=== PATIENT | female | born 1990 | race Caucasian/White ===

== ENCOUNTER → 2017-11-24 16:40 | Outpatient (CLI) | payer OTHER, SELFPAY ==
[2017-11-24 16:57] LABS: Basophils % 0.1 % (0.1-2.0); Eosinophils # 0.1 K/mm3 (0.0-0.4); Hematocrit 37.7 % (37.0-47.0); Hemoglobin 12.8 g/dL (12.2-16.2); Lymphocytes # 1.9 K/mm3 (0.7-4.5); Lymphocytes % 27.9 K/mm3 (10-50); Mean Corpuscular HGB Conc 33.9 g/dL (31.8-35.4); Mean Corpuscular Hemoglobin 27.4 pg (27.0-31.2); Mean Corpuscular Volume 80.8 fl (81-99); Mean Platelet Volume 7.2 fl (7.4-10.4); Monocytes # 0.3 K/mm3 (0.1-1.0); Neutrophils # 4.4 K/mm3 (1.8-7.8); Platelet Count 221 K/mm3 (142-424); Red Blood Count 4.67 M/mm3 (4.20-5.40); Red Cell Distribution Width 14.1 % (11.5-17.5); White Blood Count 6.7 K/mm3 (4.8-10.8)
[2017-11-26 08:28] LABS: HIV Screen 4th Generation wRfx Non Reactive (Non Reactive)
[2017-11-26 15:22] LABS: Hepatitis B Surface Antigen Negative (Negative); Hepatitis C Antibody 0.1 s/co ratio (0.0-0.9); Rapid Plasma Reagin Ab Titer Non Reactive (NonRea<1:1); Rubella Antibodies, IgG 1.81 index (Immune >0.99)
== END ==
PROVIDERS: Family Provider Physician Assistant; PCP Nurse Practitioner Family; Visit Provider Nurse Practitioner Obstetrics & Gynecology
DX: Z34.90 Encounter for supervision of normal pregnancy, unspecified, unspecified trimester (principal)
CPT/HCPCS: 36415; 85025; 86592; 86703; 86762; 86850; 87340; 87380; G0432

== ENCOUNTER → 2018-02-09 12:45 | Outpatient (CLI) | payer OTHER, SELFPAY ==
--- NOTE | 2018-02-09 12:47 | US_ITS ---
US OB /maternal detail: INDICATION: ITS.REASON: US OB Complete ORDERING PHYSICIAN: Zack Amezquita MD PATIENT AGE: 27 years TECHNIQUE: ultrasound transabdominal scanning. COMPARISON: No previous relevant studies. FINDINGS: Single viable intrauterine gestation. Breech position. Placenta: Anterior placenta grade 1. There is average amount fluid. The cervix appears satisfactory. Closed and measuring 4 cm in length. Complete survey performed and was unremarkable on the submitted images as in PACS. No discrete anomalies identified on survey imaging by technologist. Active fetus. Three-vessel cord with satisfactory umbilical cord insertion. 4- chamber heart noted. Survey of brain & ventricles unremarkable. Face and neck survey unremarkable. Diaphragm and chest views unremarkable. Abdomen: Both kidneys noted and unremarkable. Stomach noted and satisfactory. Spine: Survey of the spine satisfactory with no anomalies identified nor imaged. Both arms and legs noted. Amniotic Fluid: Adequate. Maternal adnexa: No significant findings. Measurements: Average ultrasound age 20w6d. Gestational Age 21w0d. Estimated due date by ultrasound age 0306-23-2018. Estimated weight 371 grams. BPD = 21w1d OFD = 21w1d HC = 20w3d AC = 21w1d FL = 20w2d Growth Percentile= 29% Heart Rate = 140 bpm Cerebellum = 20w5d Humerus = 21w6d HC/AC is 1.12 (1.06-1.25). CI is 79% (70-86%). FL/BPD is 66%. FL/AC is 21% (20-24%). IMPRESSION: Single live fetus which is in breech presentation with an average ultrasound age of 20 weeks 6 days. heart and body motion noted. No obvious anomalies. All parameters correlate. Please see above for detail
== END ==
PROVIDERS: PCP Nurse Practitioner Family; Visit Provider Nurse Practitioner Obstetrics & Gynecology
DX: Z36.0 Encounter for antenatal screening for chromosomal anomalies (principal)
CPT/HCPCS: 76805; 76811

== ENCOUNTER → 2018-03-22 10:17 | Outpatient (CLI) | payer OTHER, SELFPAY ==
[2018-03-22 11:00] LABS: Glucose,Fasting 88 mg/dL (60-105)
[2018-03-22 12:55] LABS: Glucose 1 Hour 154 mg/dL (74-106)
== END ==
PROVIDERS: Visit Provider Nurse Practitioner Obstetrics & Gynecology
DX: Z34.90 Encounter for supervision of normal pregnancy, unspecified, unspecified trimester (principal)
CPT/HCPCS: 36415; 82951

== ENCOUNTER → 2018-03-25 08:42 | Outpatient (CLI) | payer OTHER, SELFPAY ==
[2018-03-25 09:15] LABS: Glucose,Fasting 90 mg/dL (60-105)
[2018-03-25 11:12] LABS: Glucose 1 Hour 165 mg/dL (74-106)
[2018-03-25 12:43] LABS: Glucose 2 Hour 119 mg/dL (74-106)
[2018-03-25 13:50] LABS: Glucose 3 Hour 90 mg/dL (74-106)
== END ==
PROVIDERS: Visit Provider Nurse Practitioner Obstetrics & Gynecology
DX: Z34.90 Encounter for supervision of normal pregnancy, unspecified, unspecified trimester (principal)
CPT/HCPCS: 36415; 82951

== ENCOUNTER → 2018-05-19 13:58 | Outpatient (CLI) | payer OTHER, SELFPAY | PROVIDERS: Visit Provider Nurse Practitioner Obstetrics & Gynecology | DX: Z34.90 Encounter for supervision of normal pregnancy, unspecified, unspecified trimester (principal); Z3A.35 35 weeks gestation of pregnancy | CPT/HCPCS: 86403 ==

== ENCOUNTER 2018-06-17 05:26 | Inpatient (IN) ==
[2018-06-17 06:11] LABS: Basophils % 0.1 % (0.1-2.0); Eosinophils # 0.1 K/mm3 (0.0-0.4); Eosinophils % 1.6 % (0.1-12.0); Hematocrit 35.1 % (37.0-47.0); Hemoglobin 10.9 g/dL (12.2-16.2); Lymphocytes # 1.9 K/mm3 (0.7-4.5); Lymphocytes % 31.3 % (10-50); Mean Corpuscular Hemoglobin 23.2 pg (27.0-31.2); Mean Corpuscular Volume 74.8 fl (81-99); Mean Platelet Volume 8.3 fl (7.4-10.4); Monocytes # 0.5 K/mm3 (0.1-1.0); Monocytes % 7.8 % (1.7-9.3); Neutrophils # 3.5 K/mm3 (1.8-7.8); Neutrophils % 59.1 % (37.0-80.0); Platelet Count 244 K/mm3 (142-424); Red Blood Count 4.69 M/mm3 (4.20-5.40); Red Cell Distribution Width 15.7 % (11.5-17.5)
[2018-06-17 06:16] LABS: Anion Gap 16.9 mEq/L (5-15); Calcium 9.4 mg/dL (8.5-10.1); Potassium 3.9 mmoL/L (3.5-5.1)
[2018-06-17 06:36] LABS: Microscopic, Urine URINE MICROSCOPIC (MICROSCOPIC)
[2018-06-17 06:39] LABS: Appearance,Urine CLEAR (Clear); Bilirubin,Urine Negative (Negative); Blood, Urine TRACE-L (Negative); Color,Urine YELLOW (Yellow); Glucose,Urine (UA) Negative (Negative); Ketones,Urine TRACE (Negative); Leukocyte Esterase,Urine Negative (Negative); PH,Urine 6.5 (5.0-8.5); Protein,Urine Negative (Negative); Urobilinogen,Urine 0.2 EU/dl (0.2)
[2018-06-17 06:54] LABS: Bacteria,Urine Trace /lpf; Mucus,Urine 1+ /lpf; RBC,Urine Occasional #/hpf (0-3)
--- NOTE | 2018-06-17 08:24 | Progress Note ---
[facility] Anesthesia Checklist - Patient Identification Patient Identification: Arm Band - Structural Data Admitted From: Inpatient Planned Operative Procedure/s: repeat c/s Consent for Planned Operative Procedure(s) Verified: Yes Verified Documents: Surgical Consent, History and Physical - NPO Status Verified Time NPO: 00:00 - Additional verifications Anesthesia Reactions: No - Airway Assessment C-Spine Mobility Assessed: Yes (mp2) TMJ Mobility Assessed: Yes Dentition: Good Dentition - Neurological Assessment Level of Consciousness: Awake, Alert - Anesthesia Plan Anesthesia Risk discussed: Yes Anesthesia Plan: Verified ASA Class: II Anesthesia Type: Spinal [facility] History I have reviewed the patient's past medical history: Yes Medical History: Reports:: Gastroesophageal Reflux Disease(GERD) Denies:: Diabetes Mellitus Type 1, Diabetes Mellitus Type 2 *Have you ever received a pneumonia vaccine?: No *Have you received a flu vaccine this season?: Yes (feb 2018) Other Surgeries: Yes: Amputation: No Fractures: No - *Social History Smoking Status: Never smoker Alcohol Intake: never Substance Use Type: denies use *Occupational Status:: other, employed Family Hx:: No significant family history Para: 2
--- NOTE | 2018-06-17 08:25 | Progress Note ---
[facility] Anesthesia Record Part II Discharge Time: 09:50 Destination: Obstetric PACU nurse assessment reviewed?: Yes Patient Condition:: Good Anesthesia Complications:: None Swallowing reflex intact?: Yes Cyanosis?: No
--- NOTE | 2018-06-17 08:25 | Progress Note ---
[facility] Anesthesia Record Part I Intake, IV Amount: 2,000 Estimated blood loss (mL): 850 Urine output (mL): 150 Blood Pressure: 121/80 SaO2: 98 Pulse Rate: 91 Respiratory Rate: 16 Temperature: 97.6 F Patient is:: Drowsy, Stable Stable to PACU at:: 08:20
--- NOTE | 2018-06-17 09:23 | Operative Note ---
Date of procedure: 06/17/18 Pre-op Diagnosis:: Term , previous section Post-op Diagnosis:: Term , previous section Procedure performed:: Repeat lower segment transverse section Surgeon:: Zack Amezquita MD Structural Steel Detailer(s):: Kelsey Redman BOAT ASSEMBLER:: Diaz Austin Anesthesia: spinal Estimated blood loss (mL): 850 Clinical Note:: She is a 28-year-old 5 para 3 now aborta 2 who was 39+ weeks gestational age. She has had 2 previous sections and as a result of that was of fered repeat lower segment transverse section at term. The risks and benefits of surgery were discussed with the patient prior to surgery. Operative findings:: She delivered a liveborn male child at 7:47 AM on the morning of June 17, 2018. The baby had Apgars of 9 at 1 minute and 10 at 5 minutes. He weighed 8 pounds 15 ounces. PH was 7.32. Ovaries and tubes appeared normal. Operative note:: She was taken to the operating room where spinal anesthesia was found be adequate. She was prepped and draped in normal sterile fashion in the supine position with a leftward tilt. A Goode catheter was in the bladder. A Pfannenstiel skin incision was made with knife then carried through to the underlying layer of fascia with cautery. The fascia was opened in the midline with cautery and extended laterally using Castellanos scissors. Melvi clamps were applied to the superior aspect of the fascial incision which was tented up and the underlying rectus muscles dissected off using cautery. The Melvi clamps were then applied to the inferior aspect of the fascial incision which in a similar fashion was tented up and the underlying rectus muscles dissected off using cautery. The rectus muscles were then in the midline, the peritoneum identified, and entered sharply with Metzenbaum scissors. This incision was then extended superiorly and inferiorly with cautery. We had good visualization of the bladder inferiorly. The Rolo device was then placed within the abdominal cavity. The bladder peritoneum was then opened in the midline and extended laterally using Metzenbaum scissors. A bladder flap was created digitally. Transverse incision was made through the uterine muscle to the amnion. This incision was then extended laterally using fingers traction. The amnion was entered sharply with knife. There was clear amniotic fluid. The 's head was then delivered atraumatically. A loose nuchal cord was then reduced. This was followed by the anterior shoulder and the rest of the 's body atraumatically. The oropharynx and nasopharynx were bulb suctioned. The infant was then handed off to Dr. Buckley who assigned Apgars of 9 at 1 minute and 10 at 5 minutes. We then obtained cord blood as well as cord pH. The pH was 7.32. Using gentle traction on the cord and countertraction on the fundus I was able to easily deliver the placenta intact. It had a normal three-vessel cord. The uterus was then cleared of clots and debris . The uterine incision was then closed using running 0 Vicryl suture in a locked fashion. A second layer of the same suture was used to imbricate the first layer. The bladder peritoneum was then closed using running 2-0 Vicryl suture in a locked fashion. The gutters and cul-de-sac were then cleared of clots and debris . Once again hemostasis was assured. The peritoneum was grasped with Goldie clamps and closed using running 2-0 Vicryl suture. The rectus muscles were then reapproximated using running 0 Vicryl suture. The fascia was closed using running #1 Vicryl suture. The subcutaneous tissues were then irrigated with warm water followed by closure Marisa's fascia using running 2-0 Monocryl suture. The skin was closed with kojo. I then cleaned the skin with Hibiclens. Sterile dressings were applied. She tolerated the procedure well and was taken to the recovery room in excellent condition. All sponges minute and needle counts were correct. Estimate a blood loss was approximately 850 mL. Condition: stable Disposition: PACU Specimens:: Products of conception Complications:: None
--- NOTE | 2018-06-17 09:43 | Pharmacy Consult Notes ---
[facility] Pharmacy VTE Monitoring - Patient Demographics Admission date: 06/17/18 Report Date: 06/17/18 Time: 09:42 Allergies/Adverse Reactions: Patient Allergies Sulfa (Sulfonamide Antibiotics) Allergy (Severe, Verified 06/17/18 08:30) Hives Height: 1.6 m Weight: 107.501 kg - VTE Risk Labs: VTE Related Lab Results Hgb 10.9 g/dL (12.2-16.2) L 06/17/18 06:00 Hct 35.1 % (37.0-47.0) L 06/17/18 06:00 Plt Count 244 K/mm3 (142-424) 06/17/18 06:00 BUN 9 mg/dL (7-18) 06/17/18 06:00 Creatinine 0.63 mg/dL (0.55-1.02) 06/17/18 06:00 Estimated Creat Clear 112 mL/min (50-200) 06/17/18 06:00 - Prophylaxis Types of VTE Prophylaxis: IPCS Thigh High Location of Applied Device: Bilateral Lower Extremeties (SCUDS ORDERED)
[2018-06-17 16:13] LABS: Hematocrit 26.3 % (37.0-47.0)
[2018-06-17 16:14] LABS: Hemoglobin 8.5 g/dL (12.2-16.2)
[2018-06-18 06:55] LABS: Basophils % 0.1 % (0.1-2.0); Eosinophils # 0.1 K/mm3 (0.0-0.4); Eosinophils % 0.9 % (0.1-12.0); Lymphocytes # 2.1 K/mm3 (0.7-4.5); Lymphocytes % 29.4 % (10-50); Mean Corpuscular HGB Conc 31.6 g/dL (31.8-35.4); Mean Corpuscular Hemoglobin 23.2 pg (27.0-31.2); Mean Corpuscular Volume 73.6 fl (81-99); Mean Platelet Volume 8.5 fl (7.4-10.4); Monocytes # 0.5 K/mm3 (0.1-1.0); Monocytes % 6.6 % (1.7-9.3); Neutrophils # 4.4 K/mm3 (1.8-7.8); Neutrophils % 63.1 % (37.0-80.0); Platelet Count 198 K/mm3 (142-424); Red Blood Count 3.07 M/mm3 (4.20-5.40); Red Cell Distribution Width 15.8 % (11.5-17.5)
[2018-06-18 06:58] LABS: Hemoglobin 7.1 g/dL (12.2-16.2)
[2018-06-18 06:59] LABS: Hematocrit 22.6 % (37.0-47.0)
--- NOTE | 2018-06-18 09:20 | Progress Note ---
Internal Medicine - PN: Subj *Date: 06/18/18 *Time: 09:18 Interval history: She is doing very well. She feels a little weak. Her hemoglobin is only 7.1 this morning. She started out at just 10.9. We will go ahead and transfuse her 2 units this morning. Exam Vital signs and Labs for Last 24 Hours: Temp Pulse Resp BP Pulse Ox 97.8 F 80 18 125/69 99 06/17/18 19:58 06/17/18 19:58 06/17/18 19:58 06/17/18 19:58 06/17/18 19:58 Laboratory Results - last 24 hr 06/17/18 06:00: Blood Type O Positive, Antibody Screen Negative, Crossmatch (AHG) See Detail 06/17/18 16:00: Hgb 8.5 L D, Hct 26.3 L 06/18/18 06:20: WBC 7.0, RBC 3.07 L D, Hgb 7.1 L*, Hct 22.6 L*, MCV 73.6 L, MCH 23.2 L, MCHC 31.6 L, RDW 15.8, Plt Count 198, MPV 8.5, Neut % (Auto) 63.1, Lymph % (Auto) 29.4, [place] % (Auto) 6.6, Eos % (Auto) 0.9, Baso % (Auto) 0.1, Neut # (Auto) 4.4, Lymph # (Auto) 2.1, [place] # (Auto) 0.5, Eos # (Auto) 0.1, Baso # (Auto) 0.0 I & O for Last 24 hours: Intake & Output 06/15/18 06/16/18 06/17/18 06/18/18 11:59 11:59 11:59 11:59 Intake Total 2260 / 2260 Output Total 95 / 95 Balance 2165 / 2165 Weight 237 lb - Constitutional no acute distress Assessment and Plan (1) Previous section Current visit: Yes Status: Acute Category: Surgical Code(s): Z98.891 - History of uterine scar from previous surgery (2) delivery delivered Current visit: Yes Status: Acute Category: Medical Code(s): O82 - Encounter for delivery without indication (3) Anemia affecting , antepartum Current visit: Yes Status: Acute Category: Medical Code(s): O99.019 - Anemia complicating , unspecified trimester - Assessment and plan all Dx Assessment and Plan for all problems:: She is anemic this morning with some symptoms of fatigue. We will go ahead and transfuse her 2 units of blood. We will plan to send her home in 48 hours.
[2018-06-18 16:44] LABS: Hemoglobin 9.7 g/dL (12.2-16.2)
[2018-06-19 01:17] VITALS: BP 115/86
--- NOTE | 2018-06-19 14:10 | Discharge Summary ---
General - General Admission date:: 06/17/18 Discharge date: 06/19/18 HPI HPI: Elective repeat CS Postop course complicated by anemia with transfusion 2 units PRBCs Postop Hgb 9.7 and asymptomatic with anemia Tolerating regular diet, ambulating and voiding without difficulty Patient is requesting discharge today (POD #2) Hospital Course Hospital Course: as documented in HPI Rhogam Administration: Not Indicated Objective Vital signs: Temp Pulse Resp BP Pulse Ox 98.8 F 104 H 18 115/86 99 06/18/18 20:53 06/18/18 20:53 06/18/18 20:53 06/18/18 20:53 06/18/18 20:53 Narrative: CONSTITUTIONAL: no acute distress HEENT: mucous membranes moist PULMONARY: breathing unlabored without audible wheezes CV: no tachycardia or visible JVD; normal LE peripheral pulses ABD: soft, NT/ND, no guarding : fundus firm at/below umbilicus SKIN: incision well approximated with no drainage, erythema or induration EXT: 1+ edema LEs NEURO: alert/oriented, no altered mental status PSYCH: appropriate mood and demeanor without visible anxiety/depression Results Labs on day of discharge: Labs from last 24 hours 06/18/18 06/18/18 06/17/18 16:25 15:40 06:00 Hgb 9.7 L D Hct 30.0 L Stl Aeromonas (PCR) Not detected Stl C. cayetanensis PCR Not detected Stool Rotavirus (PCR) Not detected Stl Adenov F 40/41 PCR Not detected Stool Astrovirus (PCR) Not detected Stool Campylobacter PCR Not detected Stl C.difficile Tox PCR Not detected Stool Cryptosporidium PCR Not detected Stl E.coli Shiga Tox PCR Not detected Stool E coli O157 PCR Not detected Stl Enterotoxigenic E PCR Not detected Stool EPEC (PCR) Not detected Stool EAEC (PCR) Not detected Stl E. histolytica PCR Not detected Stool Giardia Lamblia PCR Not detected Stool Salmonella PCR Not detected Stool Sapovirus (PCR) Not detected Stl P. shigelloides PCR Not detected Stl Shigella/EIEC PCR Not detected St Y.enterocolitica PCR Not detected Stool Vibrio (PCR) Not detected Stl Vibrio cholerae PCR Not detected Stl Norovirus GI/GII PCR Not detected Crossmatch (AHG) See Detail DS: Diagnosis - Discharge Diagnosis (1) Previous section Status: Acute (2) delivery delivered Status: Acute (3) Anemia affecting , antepartum Status: Acute Discharge Plan - Patient Discharge Instructions ACTIVITY: Limited activity DIET: regular diet Additional Instructions: No heavy lifting, no strenuous activity, nothing in the vagina for 6 weeks. Patient Instructions: Depression, Hemorrhage, Surgical Site Infection, DI for Postoperative Pain, [facility] Post Discharge Instructions - Follow up Plan Follow up with: Zack Amezquita MD [Staff Physician] - 06/30/18 11:00 am Disposition: Home, Self-Chcf Medications: Home Medications Medication Instructions Recorded Confirmed Type hydroxyzine HCl 25 mg tablet 25 mg PO QID PRN #60 tab 05/06/18 06/17/18 Rx Vit Calc,Iron,Folic [Kpn] 1 tab PO DAILY 06/17/18 06/17/18 History raNITIdine HCl [Ranitidine HCl] 150 mg PO BID 06/17/18 06/17/18 History Ketorolac Tromethamine [Toradol 10 mg PO Q6H PRN #30 tab 06/19/18 Rx 10mg tablet] Oxycodone HCl [OxyIR 5mg tablet] 10 mg PO Q6HP PRN #30 tab 06/19/18 Rx Prescriptions/Medication Reconciliation: New Oxycodone HCl [OxyIR 5mg tablet] 10 mg PO Q6HP PRN #30 tab PRN Reason: Moderate To Severe Pain Ketorolac Tromethamine [Toradol 10mg tablet] 10 mg PO Q6H PRN #30 tab PRN Reason: Moderate To Severe Pain Continue hydroxyzine HCl 25 mg tablet 25 mg PO QID PRN #60 tab PRN Reason: anxiety Vit Calc,Iron,Folic [Kpn] 1 tab PO DAILY raNITIdine HCl [Ranitidine HCl] 150 mg PO BID
== END 2018-06-19 15:00 | disposition home or self-care (01) | DRG 788 ==
LOC: OB 05:26
PROVIDERS: ADMIT Nurse Practitioner Obstetrics & Gynecology; ATTEND Nurse Practitioner Obstetrics & Gynecology
CPT/HCPCS: 36415; 59025; 80048; 81001; 82800; 85014; 85018; 85025; 86850; 87507; J2405; P9016

== ENCOUNTER → 2018-10-26 15:09 | Outpatient (CLI) | payer OTHER, SELFPAY ==
--- NOTE | 2018-10-26 15:11 | US_ITS ---
US transvaginal HISTORY: Pelvic pain, abnormal uterine bleeding ITS.REASON: US T/V- Lower Abdominal Pain ORDERING PHYSICIAN: Zack Amezquita MD PATIENT AGE: 28 years Comparison: 11/19/2017 FINDINGS: The uterus is 10 x 5 x 6 cm with a combined endometrial thickness of 15 mm. The right ovary is 3.5 x 2.6 cm containing small cysts the largest at 17 mm. The left ovary is 2.9 x 2.3 cm and also contains small follicles. No cul-de-sac fluid apparent. IMPRESSION: Bulky uterus with thickened endometrium
== END ==
PROVIDERS: PCP Nurse Practitioner Family; Visit Provider Nurse Practitioner Obstetrics & Gynecology
DX: R10.30 Lower abdominal pain, unspecified (principal)
CPT/HCPCS: 76830

== ENCOUNTER → 2019-02-08 12:16 | Outpatient (CLI) | payer OTHER, SELFPAY ==
[2019-02-08 19:13] LABS: Free Thyroxine Index 2.5 ug/dL (5.93-13.13); T4 (Thyroxine) 7.7 ug/dl (4.7-13.3); Thyroid Stimulating Hormone 1.44 uIU/ml (0.358-3.740); Triiodothryronine (T3) Uptake 33 % (31-39)
== END ==
PROVIDERS: Visit Provider Nurse Practitioner Obstetrics & Gynecology
DX: F32.1 Major depressive disorder, single episode, moderate (principal); F41.1 Generalized anxiety disorder
CPT/HCPCS: 36415; 84436; 84443; 84479

== ENCOUNTER → 2019-03-14 11:19 | Outpatient (CLI) | payer OTHER, SELFPAY ==
--- NOTE | 2019-03-14 11:24 | US_ITS ---
PROCEDURE: US GALLBLADDER CLINICAL INDICATION: US Gallbladder- RUQP Right upper quadrant pain COMPARISON: No exams were available for comparison FINDINGS: Pancreas: Unremarkable/Not well seen Liver: Unremarkable. There is appropriate direction of blood flow within a non dilated portal vein. Right kidney: Unremarkable appearing. No hydronephrosis. Gallbladder: No stones are evident. There is no gallbladder wall thickening. Common duct is normal in diameter. IMPRESSION: Negative gallbladder ultrasound. No stones evident. Dictated by: Jong Zuñiga MD 03/14/2019 20:06 Electronically signed by Jong Zuñiga MD in [place] 03/14/2019 20:06
== END ==
PROVIDERS: PCP Nurse Practitioner Family; Visit Provider Nurse Practitioner Obstetrics & Gynecology
DX: R10.11 Right upper quadrant pain (principal)
CPT/HCPCS: 76705

== ENCOUNTER → 2022-06-09 14:37 | Outpatient (CLI) | payer OTHER, SELFPAY ==
[2022-06-09 17:49] LABS: HCG,Quantitative < 2 mIU/ml (0-5.42)
[2022-06-11 04:30] LABS: Progesterone 0.2 ng/mL (.)
== END ==
PROVIDERS: PCP Nurse Practitioner Family; Visit Provider Obstetrics & Gynecology
DX: Z34.90 Encounter for supervision of normal pregnancy, unspecified, unspecified trimester (principal)
CPT/HCPCS: 36415; 84144; 84702

== ENCOUNTER 2023-01-25 16:32 | Emergency (ER) | payer OTHER, SELFPAY ==
[2023-01-25 16:55] VITALS: BP 147/86; PULSE 68; RESP 22; TEMP 36.8; O2SAT 100; BMI 45.5
--- NOTE | 2023-01-25 17:14 | EXP.UTC ---
Discharge Plan Disposition Patient Disposition: Home, Self-Care Condition: Good Prescriptions Prescriptions: No Action dicyclomine 20 mg tablet 20 mg PO Q8HP PRN (Reason: IBS) Patient Comments: TAKE (1) TABLET BY MOUTH THREE TIMES DAILY. omeprazole 20 mg Capsule,Delayed Release(Dr/Ec) 20 mg PO DAILY loratadine 10 mg Capsule 10 mg PO DAILY Referrals Follow up/Referrals: Charity Bose APRN [Nurse Practitioner] - See instructions (Call office for appointment) Arin Quarles APRN [Primary Care Provider] - See instructions Activity Restrictions/Add. Instructions Additional Instructions/Restrictions: *Warm salt water gargles may help to soothe the throat and help with sores in mouth Milk of magnesium gargled and spit may help with sores in your mouth Follow up with your Family Doctor or Dentist if symptoms persist Follow up with ENT if you continue to have areas in your mouth Return if needed Straight to ER if any life threatening symptoms Clinical Impressions Clinical Impression: Canker sores oral Instructions Patient Instructions: Canker Sores (Alternative Therapy), Aphthous Ulcers Discharge ED Provider: Veena Rivas [facility] [place] HPI General Stated complaint: sore throat, rachin mouth Mode of Arrival: Ambulatory Source of Information: Patient Limitations: No Limitations Time Seen by Provider: 01/25/23 17:14 Description of Symptoms (Recalled from Triage Doc. by RN): PATIENT STATES ON WEDNESDAY NIGHT SHE WOKE UP WITH A CUT TO TOP OF TONGUE, AND SINCE THEN SHE HAS DEVELOPED A BLISTER-LIKE RASH TO MOUTH WITH PAIN AND SWELLING TO TONGUE HEENT Symptoms (Recalled from RN notes): Yes Resp Symptoms (Recalled from RN notes): No Skin Symptoms (Recalled from RN notes): No MS Symptoms (Recalled from RN notes): No Functional Status (Recalled from RN notes): WNL History of Present Illness Provider Complaint: Patient states that she woke up Wednesday morning and thinks she may have bitten her tongue in her sleep or something States that there was a little blood and a cut on her tongue States that since then she has some small blister like areas on the right side of her tongue that is sore and hurts and she has a spot on the roof of her mouth that is sore and hurts so today when she was still having them she came in to get it checked Related Data Home Medications Medication Instructions Recorded Confirmed dicyclomine 20 mg tablet 20 mg PO Q8HP PRN IBS 01/25/23 01/25/23 loratadine 10 mg capsule 10 mg PO DAILY Allergy Symptoms 01/25/23 01/25/23 omeprazole 20 mg capsule,delayed 20 mg PO DAILY GERD 01/25/23 01/25/23 release Allergies Allergy/AdvReac Type Severity Reaction Status Date / Time Sulfa (Sulfonamide Allergy Severe Hives Verified 03/14/19 10:44 Antibiotics) Worker's Comp Is this a Worker's Comp case?: No [facility] Disclaimer: The information contained in this section may have been updated after the patient was seen, as this information can be updated by other users. Social History Smoking Status: Never smoker alcohol intake: never substance use type: denies use current occupational status: employed and other Travel in the last 8 weeks: None ROS Obtained: Yes All systems reviewed & no additional complaints except as documented and Yes Systems reviewed as appropriate & no additional complaints except as documented ENT Ears, Nose, Mouth, and Throat: Reports system reviewed and no additional complaints, except as documented, Reports as per HPI, Reports sore throat and Reports other (small blister like areas on tongue and roof of mouth) Comments: Denies trouble swallowing Cardiovascular Cardiovascular: Reports system reviewed and no additional complaints, except as documented and Reports as per HPI Respiratory Respiratory: Reports system reviewed and no additional complaints, except as documented and Reports as per HPI Gastrointestinal Gastrointestingal: Reports syste
[2023-01-25 17:18] LABS: Microscopic, Urine URINE MICROSCOPIC (MICROSCOPIC)
[2023-01-25 17:24] LABS: Appearance,Urine CLOUDY (Clear); Bilirubin,Urine Negative (Negative); Blood, Urine Negative (Negative); Color,Urine YELLOW (Yellow); Glucose,Urine (UA) TRACE (Negative); Ketones,Urine Negative (Negative); Leukocyte Esterase,Urine Negative (Negative); Nitrate,Urine Negative (Negative); Protein,Urine Negative (Negative); Specific Gravity, Urine >= 1.030 (1.005-1.030); Urobilinogen,Urine 0.2 EU/dl (0.2)
[2023-01-25 18:03] VITALS: BP 147/86; PULSE 68; RESP 22; TEMP 36.8; O2SAT 100
[2023-01-25 18:13] LABS: Squamous Epithelial Cell,Urine Occasional #/hpf (0-5)
[2023-01-27 13:20] LABS: Rapid Plasma Reagin Ab Titer Non Reactive titer (NonRea<1:1)
[2023-01-27 23:08] LABS: Neisseria gonorrhoeae, NAA Negative (Negative)
== END 2023-01-25 18:15 | disposition home or self-care (01) ==
PROVIDERS: Emergency Provider Nurse Practitioner; PCP Nurse Practitioner Family
DX: K12.0 Recurrent oral aphthae (principal)
CPT/HCPCS: 81001; 86593; 87491; 87591; 99204; 99212; G0463

== ENCOUNTER → 2023-01-26 12:33 | Outpatient (CLI) | payer OTHER, SELFPAY | PROVIDERS: PCP Nurse Practitioner Family; Visit Provider Nurse Practitioner | DX: K12.0 Recurrent oral aphthae (principal) | CPT/HCPCS: 36415; 86695; 86790 ==

== ENCOUNTER → 2023-01-26 12:43 | Outpatient (CLI) | payer OTHER, SELFPAY | PROVIDERS: Visit Provider Nurse Practitioner | DX: K12.2 Cellulitis and abscess of mouth (principal) ==

== ENCOUNTER → 2023-02-19 11:03 | Outpatient (CLI) | payer OTHER, SELFPAY ==
--- NOTE | 2023-02-19 11:26 | CA_ITS ---
APPROVED REPORT EXAM: Comprehensive 2D, Doppler, and color-flow Echocardiogram Napkin Machine Operator: ARABELLA Martínez, RVS Ht: 5 ft 2 in Wt: 251lbs BSA: 2.11 BP: 150/94 mmHg Indications: PALPITATIONS, ABN ekg, CP, FATIGUE, SOB, EDEMA 2D Dimensions Aortic Root 2.70 cm LA Volume 46.70 mL Left Atrium 3.44 cm LA Volume Index 21.60 mL/m2 (M/F) 16-34 LVOT 2.04 cm (M/F) 1.5-2.5 M-Mode Dimensions RVDd 2.30 cm (0.9-2.6) LA Diam 3.72 cm (1.9-4.0) LVDd 5.02 cm (3.5-5.7) Ao Diam 2.69 cm (2.0-3.7) LVDs 3.26 cm (3.5-5.7) IVSd 0.90 cm (0.6-1.1) PWd 0.97 cm (0.6-1.1) EF (Teich) 64.10% EPSs 0.65 cm FS 35.10% EDV (Teich) 119.30 mL TAPSE 1.74 (<1.7) ESV (Teich) 42.80 mL LV Diastology E Decel Time 177.00 (160-240 msec) E/A Ratio 0.96 MED E' 8.20 (< 7 cm/sec) MED A' 11.10 cm/s E'/MED E' Ratio 9.87 (>14) LAT E' 14.00 (<10 cm/sec) LAT A' 10.50 cm/s E/LAT E' Ratio 5.78 (>14) Aortic Valve LVOT Max 101.00 (70-110 cm/s) LVOT VTI 21.50 cm AoV Peak Teo. 156.00 (50-130 cm/s) AO Peak GR. 9.80 mmHg AO Mean GR. 4.80 (<5 mmHg) AO VTI 30.22 (18-25 cm) HUGO (VTI) 2.33 (2.5-4.5 cm2) Mitral Valve MV A Velocity 84.00 (40-130 cm/s) E/A Ratio 0.96 MV Decel. Time 177.00 (160-240 ms) Left Ventricle The left ventricle is normal size. The left ventricular systolic function is normal. The left ventricular ejection fraction is within the normal range. There is normal left ventricular wall thickness. There is normal LV segmental wall motion. The left ventricular diastolic function is normal. LVEF is 55%. Right Ventricle The right ventricle is normal size. The right ventricular systolic function is normal. Atria The left atrium size is normal. The right atrium size is normal. There is no Doppler evidence of interatrial shunt. Aortic Valve The aortic valve opens well. There is no aortic valvular stenosis. No aortic regurgitation is present. Mitral Valve The mitral valve is normal in structure. No evidence of mitral valve stenosis. Trace mitral regurgitation. Tricuspid Valve The tricuspid valve leaflets are thin and pliable. Trace tricuspid regurgitation. RVSP is normal. Pulmonic Valve The pulmonary valve is normal in structure. Trace pulmonic regurgitation. Great Vessels The aortic root is normal in size. The ascending aorta is normal in size. IVC is normal in size and collapses >50% with inspiration. Pericardium There is no pericardial effusion. Other Information Study Quality: Adequate Conclusion Normal biventricular systolic function. No significant valvular stenosis or regurgitation. Electronically signed by : Nickie Augustin MD 02/22/2023 21:01:40
[2023-02-19 11:39] LABS: Basophils % 0.4 % (0.1-2.0); Eosinophils # 0.2 K/mm3 (0.0-0.4); Eosinophils % 2.5 % (0.1-12.0); Hematocrit 39.6 % (37.0-47.0); Hemoglobin 13.6 g/dL (12.2-16.2); Lymphocytes # 2.2 K/mm3 (0.7-4.5); Lymphocytes % 24.3 % (10-50); Mean Corpuscular HGB Conc 34.3 g/dL (31.8-35.4); Mean Corpuscular Hemoglobin 29.1 pg (27.0-31.2); Mean Corpuscular Volume 84.9 fl (81-99); Mean Platelet Volume 9.2 fl (7.4-10.4); Monocytes # 0.6 K/mm3 (0.1-1.0); Monocytes % 6.9 % (1.7-9.3); Neutrophils # 5.8 K/mm3 (1.8-7.8); Platelet Count 193 K/mm3 (142-424); Red Blood Count 4.66 M/mm3 (4.20-5.40); Red Cell Distribution Width 14.7 % (11.5-17.5); White Blood Count 8.8 K/mm3 (4.8-10.8)
[2023-02-19 12:04] LABS: Hemoglobin A1C 5.5 % (4.0-6.0)
[2023-02-19 13:04] LABS: HCG Qualitative, Serum Negative (Negative)
[2023-02-19 13:11] LABS: Alanine Aminotransferase 41 U/L (12-78); Albumin Level 4.4 g/dl (3.5-5.0); Alkaline Phosphatase 72 U/L (38-126); Anion Gap 15.3 mEq/L (5-15); Aspartate Amino Transferase 50 U/L (14-36); Bilirubin,Direct 0.1 mg/dl (0.0-0.4); Bilirubin,Indirect 0.2 mg/dL (0.0-0.9); Bilirubin,Total 0.3 mg/dl (0.2-1.3); Bilirubin,Unconjugated 0.1 mg/dL (0.0-1.1); Blood Urea Nitrogen 12 mg/dl (7-17); Calcium 9.4 mg/dl (8.4-10.2); Carbon Dioxide 25 mmol/L (22.0-30.0); Chloride 104 mmol/L (98-107); Chol/HDL Ratio 3.6 (1-3.5); Cholesterol 162 mg/dl (140-200); Estimated Glomerular Filt Rate 74 ml/min (>60); GFR (African American) 89 ML/MIN (>60); Glucose 93 mg/dl (74-100); HDL Cholesterol 45 mg/dl (40-60); Magnesium 1.9 mg/dl (1.6-2.3); Potassium 4.3 mmoL/L (3.5-5.1); Sodium 140 mmol/L (136-145); Total Protein,Serum 7.3 g/dl (6.3-8.2); Triglycerides 148 mg/dl (30-150); VLDL Cholesterol 30 mg/dL (0-40)
[2023-02-19 13:21] LABS: Direct LDL Cholesterol 83.33 mg/dL (100-129)
[2023-02-19 13:27] LABS: Free T4 (Free Thyroxine) 0.94 ng/dl (0.78-2.19)
[2023-02-19 13:42] LABS: Thyroid Stimulating Hormone 1.45 uIU/mL (0.465-4.68)
== END ==
LOC: RT 11:05
PROVIDERS: PCP Nurse Practitioner Family; Visit Provider Physician Assistant
DX: R06.00 Dyspnea, unspecified (principal); R07.89 Other chest pain; R94.31 Abnormal electrocardiogram [ECG] [EKG]; I10 Essential (primary) hypertension; R00.2 Palpitations; R06.81 Apnea, not elsewhere classified; R06.83 Snoring; R40.0 Somnolence; R53.83 Other fatigue; E66.9 Obesity, unspecified; Z68.42 Body mass index [BMI] 45.0-49.9, adult
CPT/HCPCS: 36415; 80048; 80061; 80076; 83036; 83735; 84439; 84443; 84703; 85025; 93225; 93306

== ENCOUNTER 2023-05-07 11:59 | Emergency (ER) | payer OTHER, SELFPAY ==
--- NOTE | 2023-05-07 12:00 | ED_ITS ---
Discharge Plan Disposition Patient Disposition: Home, Self-Care Condition: Good Prescriptions Prescriptions: New amoxicillin-pot clavulanate 875-125 mg Tablet 1 tab PO Q12H Qty: 20 0RF No Action amitriptyline 10 mg tablet 10 mg PO HS Qty: 30 2RF dicyclomine 20 mg tablet 20 mg PO Q8HP PRN (Reason: IBS) Patient Comments: TAKE (1) TABLET BY MOUTH THREE TIMES DAILY. loratadine 10 mg Capsule 10 mg PO DAILY pantoprazole 40 mg Tablet,Delayed Release (Dr/Ec) 40 mg PO DAILY metoprolol succinate 25 mg tablet extended release 24 hr 25 mg PO DAILY Patient Comments: TAKE ONE TABLET BY MOUTH EVERY DAY Referrals Follow up/Referrals: Provider,Referral, MD [Primary Care Provider] - See instructions Clinical Impressions Clinical Impression: Strep pharyngitis Instructions Patient Instructions: DI for Strep Throat Discharge ED Provider: Eliana Isaacs [facility] [place] General Stated complaint: sore throat, congestion Time Seen by Provider: 05/07/23 12:18 History of Present Illness Provider Complaint: Sore throat, productive cough, congestion X 1 day. No fever. No vomiting or diarrhea. Onset (ago): day(s) (1) Relieving factors: none Exacerbating factors: none Associated symptoms: denies other symptoms Treatments prior to arrival: none Related Data Home Medications Medication Instructions Recorded Confirmed dicyclomine 20 mg tablet 20 mg PO Q8HP PRN IBS 01/25/23 05/07/23 loratadine 10 mg capsule 10 mg PO DAILY Allergy Symptoms 01/25/23 05/07/23 metoprolol succinate 25 mg 25 mg PO DAILY 05/07/23 05/07/23 tablet,extended release 24 hr pantoprazole 40 mg tablet,delayed 40 mg PO DAILY 05/07/23 05/07/23 release Previous Rx's Medication Instructions Recorded amitriptyline 10 mg tablet 10 mg PO HS #30 tabs 04/01/23 amoxicillin 875 mg-potassium 1 tab PO Q12H #20 tabs 05/07/23 clavulanate 125 mg tablet Allergies Allergy/AdvReac Type Severity Reaction Status Date / Time Sulfa (Sulfonamide Allergy Severe Hives Verified 04/01/23 16:04 Antibiotics) [facility] Disclaimer: The information contained in this section may have been updated after the patient was seen, as this information can be updated by other users. Medical History Oral lesion Social History Smoking Status: Never smoker alcohol intake: never substance use type: denies use current occupational status: employed and other Travel in the last 8 weeks: None ROS Obtained: Yes All systems reviewed & no additional complaints except as documented Constitutional Constitutional: Denies fever(s) and Reports malaise ENT Ears, Nose, Mouth, and Throat: Reports sore throat Respiratory Respiratory: Reports cough Physical Exam General General appearance: alert and in no apparent distress Head Head exam: atraumatic, normocephalic and normal inspection Eye Eye exam: Present normal appearance, PERRL and EOMI ENT ENT exam: Present normal exam, normal oropharynx, mucous membranes moist, TM's normal bilaterally and normal external ear exam Neck Neck exam: Present normal inspection, full ROM and trachea midline; Absent meningismus or lymphadenopathy Chest Chest inspection: Present normal inspection and symmetric chest wall rise; Absent tenderness Respiratory Respiratory exam: Present normal lung sounds bilaterally; Absent respiratory distress Cardiovascular Cardiovascular exam: Present regular rate and normal rhythm; Absent JVD Abdominal Exam Abdominal exam: Present soft and normal bowel sounds; Absent distention, tenderness or guarding Extremities Exam Extremities exam: Present normal inspection, full ROM and normal capillary refill; Absent calf tenderness Back Exam Back exam: Present normal inspection; Absent tenderness Neurological Exam Neurological exam: Present alert and oriented X3 Psychiatric Psychiatric exam: Present normal affect and normal mood Skin Skin exam: Present warm, dry, intact and normal color Lymphatic Lymphatic Findings: no adenopathy Medical Decision Making Stan Inquiry Pt receiving controlled substance: No Lab Data Lab results reviewed: Yes I reviewed the patient's lab results.
[2023-05-07 12:15] VITALS: BP 127/51; PULSE 75; RESP 20; TEMP 37.1; O2SAT 97; BMI 45.3
[2023-05-07 12:39] LABS: UTC Influenza A Antigen Negative (Negative); UTC Influenza B Antigen Negative (Negative); UTC Strep Screen (Rapid) Positive (Negative)
[2023-05-07 12:41] VITALS: BP 127/51; PULSE 75; RESP 20; TEMP 37.1; O2SAT 97
== END 2023-05-07 12:47 | disposition home or self-care (01) ==
PROVIDERS: Emergency Provider Physician Assistant
DX: J02.0 Streptococcal pharyngitis (principal); R07.0 Pain in throat; R05.8 Other specified cough; R09.81 Nasal congestion
CPT/HCPCS: 87804; 87880; 99212; 99214; G0463

== ENCOUNTER 2023-05-26 10:22 | Day surgery (SDC) | payer OTHER, SELFPAY ==
[2023-05-26 10:33] VITALS: BMI 46.6
[2023-05-26] MEDS: LACTATED RINGERS 1000ML 1,000 ML 25 ML IV (10:39)
[2023-05-26 10:47] VITALS: BP 124/88; PULSE 107; RESP 18; TEMP 36.6; O2SAT 97
--- NOTE | 2023-05-26 11:07 | EXP.ANES.CKL ---
[facility] Disclaimer: The information contained in this section may have been updated after the patient was seen, as this information can be updated by other users. Medical History Anxiety GERD (gastroesophageal reflux disease) IBS (irritable bowel syndrome) Oral lesion Surgical History History of History of cholecystectomy Family History Other Family history of cancer Family history of hypertension Social History Smoking Status: Never smoker alcohol intake: never substance use type: denies use current occupational status: employed Travel in the last 8 weeks: None [facility] Anesthesia Checklist Patient Identification Patient Identification: Arm Band and Verbal (Name & ) Structural Data Admitted From: Home Planned Operative Procedure/s: EGD/Colonoscopy Consent for Planned Operative Procedure(s) Verified: Yes NPO Status Verified Time NPO: 00:00 Chart Verification Results Verified: HCG Additional verifications Anesthesia Reactions: No Airway Assessment Mallampati Score:: Class I C-Spine Mobility Assessed: Yes TMJ Mobility Assessed: Yes Dentition: Good Dentition Neurological Assessment Level of Consciousness: Awake Hx Seizures: No Numbness or tingling in extremities: No Anesthesia Plan Anesthesia Risk discussed: Yes Anesthesia Plan: Verified ASA Class: II Anesthesia Type: MAC
[2023-05-26 11:15] LABS: Urine Pregnancy, HCG Qual. Negative (Negative)
[2023-05-26 11:57] VITALS: O2SAT 97
[2023-05-26 12:22] VITALS: BP 104/47; PULSE 103; RESP 16; TEMP 36.2; O2SAT 94
--- NOTE | 2023-05-26 12:23 | P.PCN_ITS ---
Procedure: Date: 05/26/23 Patient Date of :: 1990 Procedure Performed:: Colonoscopy Indications:: The patient is a 33-year-old who presents for colonoscopy evaluation of abdominal pain and diarrhea. The patient also reports having had a colonoscopy in 2013 at [place], [place] performed by Dr. Jovan Luke. She reports having had small colon polyps removed at that time. Pathology results and colonoscopy report are not available for review today. The patient has urgent desire to stool after eating. The patient does report improvement in symptoms when dicyclomine is used as needed. Performing Provider:: Surya Robertson MD Referring Provider:: Leah Kimball APRN Sedation:: See RN records Procedure:: After placing the patient in the left lateral decubitus position, the colonoscopy was gently inserted into the rectum and under direct visualization advanced to the cecum which was identified by transillumination in the right lower quadrant, identification of the ileocecal valve, appendiceal orifice, and cecal strap. Color, texture, mucosa, and anatomy of the colon were carefully examined with the scope. Findings:: The quality of the bowel preparation was excellent. The examined terminal ileum appeared normal. Biopsies were obtained with cold forceps for histology. The examined colon appeared normal. Random colon biopsies were obtained from the colon for histology and evaluation for microscopic colitis. There were a few small diverticula of the hepatic flexure. Recommendations:: Await pathology results Obtain prior colonoscopy report and pathology records from patient's last colonoscopy Follow-up in the GI office as previously scheduled Complications:: None Estimated blood obtained (mL): 0 Colonoscopy Component Colonoscopy Component Was a colonoscopy performed during today's procedure?: Yes Recommended follow up colonoscopy of at least 10 years?: Yes
--- NOTE | 2023-05-26 12:27 | HMH.SCOPE ---
Procedure: Date: 05/26/23 Patient Date of :: 1990 Procedure Performed:: EGD Indications:: The patient is a 33-year-old who presents for EGD evaluation of abdominal pain, nausea and vomiting, and diarrhea. The symptoms are chronic. The patient has a history of cholecystectomy. Performing Provider:: Surya Robertson MD Referring Provider:: Leah Kimball APRN Sedation:: See RN records Procedure:: The gastroscope was gently passed through the incisoral orifice into the oral cavity and under direct visualization the esophagus was intubated. The endoscope was passed down the esophagus, through the stomach, and into the duodenum. Color, texture, mucosa, and anatomy of the esophagus, stomach, and duodenum were carefully examined with the scope. Findings:: The esophagus appeared normal. The Z-line was regular and measured at 35 cm. There was mild inflammation of the gastric antrum and body characterized by erythema. Biopsies were obtained with cold forceps for histology. The examined duodenum appeared normal. Biopsies were obtained to evaluate for celiac disease. Recommendations:: Await pathology results Move forward to colonoscopy for evaluation of patient's symptoms Complications:: None Estimated blood obtained (mL): 0 Colonoscopy Component Colonoscopy Component Was a colonoscopy performed during today's procedure?: No
[2023-05-26 12:32] VITALS: BP 108/54; PULSE 100; RESP 16; O2SAT 97
[2023-05-26 12:42] VITALS: BP 144/67; PULSE 100; RESP 16; O2SAT 100
== END 2023-05-26 12:55 | disposition home or self-care (01) ==
PROVIDERS: Visit Provider Internal Medicine
PROC: 0DJ08ZZ Inspection of Upper Intestinal Tract, Via Natural or Artificial Opening Endoscopic (ICD-10-PCS; CPT 43235; principal; 2023-05-26 11:30)
DX: R10.9 Unspecified abdominal pain (principal); R11.2 Nausea with vomiting, unspecified; R19.7 Diarrhea, unspecified; K29.50 Unspecified chronic gastritis without bleeding
CPT/HCPCS: 45378; 43239; 81025

== ENCOUNTER → 2023-05-31 13:21 | Outpatient (CLI) | payer OTHER, SELFPAY | LOC: SL 13:22 | PROVIDERS: Visit Provider Physician Assistant | DX: G47.30 Sleep apnea, unspecified (principal); R06.83 Snoring | CPT/HCPCS: 95806 ==